=== PATIENT | female | born 1955 | race Caucasian/White ===

== ENCOUNTER 2022-06-09 21:53 | Outpatient (CLI) | payer MEDICARE, MEDICAID | END 2022-06-09 23:59 | disposition EMS.NT | LOC: EMS 21:53 | DX: R53.1 Weakness (principal) ==

== ENCOUNTER → 2022-06-09 | Outpatient (CLI) | payer MEDICARE, MEDICAID | END | disposition EMS.NT | LOC: EMS 16:17 | DX: R53.1 Weakness (principal) ==

== ENCOUNTER 2022-06-10 02:01 | Outpatient (CLI) | payer MEDICARE, MEDICAID | END 2022-06-10 02:02 | disposition EMS.NT | LOC: EMS 02:01 | DX: R53.1 Weakness (principal) ==

== ENCOUNTER 2022-06-10 04:22 | Outpatient (CLI) | payer MEDICARE, MEDICAID | END 2022-06-10 23:59 | disposition EMS.NT | LOC: EMS 04:22 | DX: Z03.89 Encounter for observation for other suspected diseases and conditions ruled out (principal) ==

== ENCOUNTER 2022-06-10 10:50 | Outpatient (CLI) | payer MEDICARE, MEDICAID | END 2022-06-10 23:59 | disposition critical access hospital (66) | LOC: EMS 10:50 | DX: Z74.1 Need for assistance with personal care (principal) | CPT/HCPCS: A0425; A0429 ==

== ENCOUNTER 2022-06-10 11:11 | Emergency (ER) | payer MEDICARE, MEDICAID ==
--- NOTE | 2022-06-10 11:39 | ED Physician Documentation ---
History of Present Illness - Stated complaint Stated Complaint: FTT - Chief complaint Chief Complaint: General - Additonal information Additional information: 66-year-old woman reportedly with metastatic breast cancer with metastases to the brain. She is in hospice. Lives with her who is not present at the time of initial evaluation. Reportedly hospice called ahead and patient has been agitated and may need placement. Patient is an unreliable historian. PD PAST MEDICAL HISTORY - Past Medical History Cardiovascular: NC, Other Respiratory: None Endocrine/Autoimmune: Type 2 diabetes GI: Other GROOVER AND TURNER: None : None HEENT: Other Derm: None - Past Surgical History Past Surgical History: Yes Cardiovascular: Coronary stent Derm: Debridement - Allergies Allergies/Adverse Reactions: Allergies Allergy/AdvReac Type Severity Reaction Status Date / Time lidocaine HCl * Allergy Unknown Verified 04/24/14 13:10 [From Xylocaine] Sulfa (Sulfonamide Allergy Hives Verified 04/24/14 13:10 Antibiotics) - Social History Does the pt smoke?: Yes Smoking Status: Current every day smoker Does the pt drink ETOH?: No Does the pt have substance abuse?: No - Immunizations Immunizations are current?: No Immunizations: TDAP >10years/unknown - POLST Patient has POLST: No PD ED PE NORMAL - Vitals Vital signs reviewed: Yes - General General: Other (She is alert and oriented to person. When asked the year she says it is 1962. When I ask her where she is she says she is in "[place]". 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 He is simply no longer able to care for her. He appears to have some significant back issues as well. We will asked social work to see. He would like her placed at [facility]. Social work saw her. There is no indication for admission to the hospital and therefore no qualifying stay for SNF. They are out of hospice now, and he declined efforts at placement at a SNF reportedly due to inability to pay. I was able to talk with Dr. Matos of [facility] subsequent to discharge and they are reenrolling her Departure - Departure Disposition: 01 Home, Self Care Clinical Impression: Metastatic breast cancer, Concern about end of life Condition: Good Record reviewed to determine appropriate education?: Yes Instructions: Tips Coping Caregivers Comments: Return anytime if she worsens You may consider reenrolling in hospice, I will call hospice of the [place] to let them know that we did not have any resources that could place Layla faster than they could. Discharge Date/Time: 06/10/22 15:20
[2022-06-10] MEDS ORDERED: LORazepam 1 MG TABLET PO STA (12:30)
[2022-06-10] MEDS ORDERED: OLANZapine 10 MG VIAL IM STA (13:14)
[2022-06-10 14:35] VITALS: BP 152/84
== END 2022-06-10 15:20 | disposition home or self-care (01) ==
LOC: EDUNIT# → ED 11:11
DX: Z74.1 Need for assistance with personal care (principal); F17.200 Nicotine dependence, unspecified, uncomplicated; C50.919 Malignant neoplasm of unspecified site of unspecified female breast
CPT/HCPCS: 96372; 99283; J8499

== ENCOUNTER 2022-06-13 00:32 | Outpatient (CLI) | payer MEDICARE, MEDICAID | END 2022-06-13 23:59 | disposition E | LOC: EMS 00:32 ==